=== PATIENT | female | born 1990 | race Hispanic/Latino ===

== ENCOUNTER 2018-12-03 20:08 | Emergency (ER) | payer OTHER ==
[2018-12-03 20:32] VITALS: RESP 18; BMI 20.7
--- NOTE | 2018-12-03 21:13 | ED PDOC ---
Arrival/HPI - General Chief Complaint: Abdominal Pain Historian: Patient - History of Present Illness Narrative History of Present Illness (Text): 12/03/18 20:56 A 28 year old female, , with no significant past medical history presents to the emergency department complaining of intermittent abdominal pain for the past few days. Patient reports her LNMP was in early September and reports she took two home tests which were positive. 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 Patient notes she has not taken any medication for pain. Patient denies any vaginal bleeding, spotting, fever, chest pain, or any other complaints. No PMD Time/Duration: Other (few days) Symptom Onset: Gradual Symptom Course: Intermittent Quality: Cramping Activities at Onset: Light Context: Home Past Medical History - Provider Review Nursing Documentation Reviewed: Yes - Infectious Disease Hx of Infectious Diseases: None - Psychiatric Hx Substance Use: No - Anesthesia Hx Anesthesia: No Family/Social History - Physician Review Nursing Documentation Reviewed: Yes Family/Social History: No Known Family HX Smoking Status: Never Smoked Hx Alcohol Use: No Hx Substance Use: No Allergies/Home Meds Allergies/Adverse Reactions: Allergies No Known Allergies Allergy (Verified 12/03/18 20:30) Review of Systems - Physician Review All systems were reviewed & negative as marked: Yes - Review of Systems Constitutional: absent: Fevers Cardiovascular: absent: Chest Pain Gastrointestinal: Abdominal Pain Genitourinary Female: absent: Vaginal Bleeding Physical Exam Vital Signs Reviewed: Yes Vital Signs Temp Pulse Resp BP Pulse Ox 12/03/18 20:31 98.3 F 86 18 118/75 100 Temperature: Afebrile Blood Pressure: Normal Pulse: Regular Respiratory Rate: Normal Appearance: Positive for: Well-Appearing, Non-Toxic Mental Status: Positive for: Alert and Oriented X 3 - Systems Exam Head: Present: Atraumatic, Normocephalic Pupils: Present: PERRL Extroacular Muscles: Present: EOMI Conjunctiva: Present: Normal Respiratory/Chest: Present: Clear to Auscultation, Good Air Exchange. No: Respiratory Distress, Accessory Muscle Use Cardiovascular: Present: Regular Rate and Rhythm, Normal S1, S2. No: Murmurs Abdomen: Present: Tenderness (superpubic tenderness) Neurological: Present: GCS=15 Skin: Present: Warm Psychiatric: Present: Alert, Oriented x 3, Normal Insight, Normal Concentration Medical Decision Making ED Course and Treatment: 12/03/18 20:56 Impression: 28 year old female presenting to the emergency room complaining of abdominal pain. Plan: -- Type and screen -- Beta-HCG -- CMP -- Magnesium -- CBC -- POC urine test -- Urinalysis -- Transvaginal ultrasound -- Reassess and disposition Progress Notes: 12/03/18 23:11 Ultrasound shows IUP with ovarian cyst at 9 weeks and 2 days. Patient updated on information. White count noted. Patient reports no abdominal pain at this time. Patient will be treated for bacteria in urine with keflex. Patient is advised to see an OBGYN with more information provided in discharge paperwork. Patient was advised not to drink alcohol. - RAD Interpretation Narrative RAD Interpretations (Text): 12/03/18 23:14 EXAM: US Obstetrical, Complete <14 weeks CLINICAL HISTORY: /ABD PAIN TECHNIQUE: Transvaginal and transabdominal imaging of the maternal pelvis and a <14 week gestation with image documentation. COMPARISON: None provided. FINDINGS: GESTATION: An early single living IUP is identified estimated to be 9 weeks and 2 days in age, +/- 5 days. cardiac activity documented bleeding at a rate of 174 BPM. UTERUS: A 6.6 x 4.7 x 5.3 cm heterogeneous mass arises from the lower anterior uterine body thought compatible with a uterine fibroid. CERVIX: Closed. Unremarkable. OVARIES: Unremarkable. No mass. A 1.9 x 1.6 cm cyst is noted in the right ovary. A few tiny left ovarian follicles are present. FREE FLUID: No free fluid. IMPRESSION: Single living intrauterine . No acute abnormality. Incidental note is made of a 6.6 x 4.7 x 5.3 cm fibroid arising from the lower anterior uterine segment. A 1.9 x 1.6 cm right ovarian cyst is identified. Electronically signed on December 03, 2018 10:51:55 PM EDT by: Nakul Thomas M.D., M.B.A., Certified By [employer] Trained MRI and CT Specialist Cupola Operator: Radiologist - Scribe Statement The provider has reviewed the documentation as recorded by the Minna Carver All medical record entries made by the Scribe were at my direction and personally dictated by me. I have reviewed the chart and agree that the record accurately reflects my personal performance of the history, physical exam, medical decision making, and the department course for this patient. I have also personally directed, reviewed, and agree with the discharge instructions and disposition. Disposition/Present on Arrival - Present on Arrival History of DVT/PE: No History of Uncontrolled Diabetes: No Urinary Catheter: No History of Decub. Ulcer: No History Surgical Site Infection Following: None - Disposition Diagnosis: Disposition: HOME/ ROUTINE Disposition Time: 23:12 Patient Problems: Current Active Problems Problem Status Onset Acute Condition: STABLE Discharge Instructions (ExitCare): Medications and , Alcohol and , - The Second Month Print Language: RUSSIAN Additional Instructions: All medical record entries made by the Scribe were at my direction and personally dictated by me. I have reviewed the chart and agree that the record accurately reflects my personal performance of the history, physical exam, medical decision making, and the department course for this patient. I have also personally directed, reviewed, and agree with the discharge instructions and disposition. Please follow Prescriptions: Cephalexin [Keflex] 500 mg PO BID 5 Days #10 capsule Referrals: Lucas Batres MD [Medical Doctor] - Follow up with primary Scarlett Danielson MD [Medical Doctor] - Follow up with primary Solomon Mendoza MD [Medical Doctor] - Follow up with primary Scarlett Boucher MD [Medical Doctor] - Follow up with primary Forms: [employer] (Moroccan), SCHOOL NOTE, WORK NOTE
[2018-12-03 21:27] LABS: URINE BILIRUBIN NEGATIVE (NEGATIVE); URINE BLOOD NEGATIVE (NEGATIVE); URINE GLUCOSE (UA) NEGATIVE (NEGATIVE); URINE LEUKOCYTE ESTERASE TRACE Leu/uL (NEGATIVE); URINE PROTEIN 30 mg/dL (<30 mg/dL); URINE UROBILINOGEN 0.2 E.U./dL (<1 E.U./dL)
[2018-12-03 21:28] LABS: BASO # 0.01 K/mm3 (0.0-2.0); BASO % 0.1 % (0.0-3.0); EOS # 0.1 (0.0-0.7); EOS % 0.3 % (1.5-5.0); HEMOGLOBIN 11.8 g/dL (12.0-16.0); LYMPH # 1.7 (1.2-3.4); LYMPH % 12.1 % (22.0-35.0); MEAN CELL VOLUME 84.5 fl (80.0-105.0); MEAN CORPUSCULAR HEMOGLOBIN 27.8 pg (25.0-35.0); MEAN CORPUSCULAR HGB CONC 32.9 g/dl (31.0-37.0); MEAN PLATELET VOLUME 10.4 fl (7.0-11.0); MONO # 1.2 (0.1-0.6); RBC 4.25 10^6/uL (3.5-6.1); RED CELL DISTRIBUTION WIDTH 13.7 % (11.5-14.5); WHITE BLOOD COUNT 14.3 10^3/uL (4.5-11.0)
[2018-12-03 21:28] LABS: URINE APPEARANCE SL CLOUDY (CLEAR); URINE COLOR YELLOW (YELLOW)
[2018-12-03 21:40] LABS: ALB/GLOB RATIO 1.1 (1.1-1.8); ALT/SGPT 6 U/L (7-56); AST/SGOT 19 U/L (14-36); BLOOD UREA NITROGEN 11 mg/dL (7-21); CALCIUM 10.4 mg/dL (8.4-10.5); GFR NON-AFRICAN AMERICAN > 60
[2018-12-03 21:46] LABS: URINE BACTERIA SMALL /hpf; URINE RBC 0 - 2 /hpf (0-2)
[2018-12-03 23:50] VITALS: BP 122/68; PULSE 88; TEMP 98.1; O2SAT 98
--- NOTE | 2018-12-04 10:55 | US ---
Date of service: 12/03/2018 PROCEDURE: OB Pelvic Ultrasound HISTORY: abdominal pain w/ LMP 10/12 COMPARISON: None available. FINDINGS: UTERUS: Single Live intrauterine gestation. Yolk sac is visualized. CRL measures 2.12 cm equivalent to 8 weeks and 5 days of gestational age. Gestational sac diameter measures 4.4 cm equivalent to 9 weeks and 6 days of gestational age. age (Ultrasound estimated): 9 weeks and 2 days Date of delivery (Ultrasound estimated) : 07/06/2019 Heart rate: 175 bpm. Darling-gestational hemorrhage: None. Uterus measures 10.0 x 6.1 cm. Anteverted. There is a 5.2 x 4.6 x 6.5 cm anterior wall subserosal fibroid in the lower uterine segment. CERVIX: Long and closed. No cervical abnormality seen. RIGHT OVARY: Measures cm. No mass. Normal flow. There is a 1.8 x 1.5 x 1.6 cm corpus luteum cyst. LEFT OVARY: Measures cm. No mass. Normal flow. FREE FLUID: None. OTHER FINDINGS: None. IMPRESSION: 1. Single live intrauterine gestation with mean gestational age of 9 weeks and 2 days. The estimated date of delivery by ultrasound is 07/06/2019. The ultrasound dates correspond with the clinical dates. 2. Large 5.2 x 4.6 x 6.5 cm anterior wall subserosal fibroid in the lower uterine segment. A preliminary report was provided by Orlebar Brown.
== END 2018-12-03 23:49 | disposition home or self-care (01) ==
LOC: ED 20:08
DX: O26.891 Other specified pregnancy related conditions, first trimester (principal); Z3A.09 9 weeks gestation of pregnancy